=== PATIENT | male | born 1990 | race Two or more races ===

== ENCOUNTER 2022-08-30 12:16 | Emergency (ER) | payer OTHER, SELFPAY ==
--- NOTE | ~2022-08-30 | US_ITS ---
EXAMINATION: US SCROTUM CLINICAL INFORMATION: Left testicular pain. Rule out torsion.. COMPARISON: None available. TECHNIQUE: A sonogram of the scrotum was performed assessing crews-scale appearance and color Doppler flow. Spectral Doppler analysis of the arterial and venous flow were performed in the testes bilaterally. FINDINGS: RIGHT: Right testicle measures 5.0 x 2.4 x 3.1 cm, volume 19.1 mL. No focal testicular parenchymal lesions are visualized. Spectral Doppler analysis of the arterial and venous flow is normal in the right testis. Right epididymal head is normal in size. No right hydrocele or varicocele is seen. Right epididymal Doppler flow is normal. LEFT: Left testicle measures 4.8 x 2.5 x 2.9 cm, volume 17.7 mL. No focal testicular parenchymal lesions are visualized. Spectral Doppler analysis of the arterial and venous flow is normal in the left testis. Left epididymal head is normal in size. No left hydrocele or varicocele is seen. Left epididymal Doppler flow is normal. US/US scrotum IMPRESSION: Normal scrotal ultrasound.
--- NOTE | ~2022-08-30 | US_ITS ---
EXAMINATION: US SCROTUM CLINICAL INFORMATION: Left testicular pain. Rule out torsion.. COMPARISON: None available. TECHNIQUE: A sonogram of the scrotum was performed assessing crews-scale appearance and color Doppler flow. Spectral Doppler analysis of the arterial and venous flow were performed in the testes bilaterally. FINDINGS: RIGHT: Right testicle measures 5.0 x 2.4 x 3.1 cm, volume 19.1 mL. No focal testicular parenchymal lesions are visualized. Spectral Doppler analysis of the arterial and venous flow is normal in the right testis. Right epididymal head is normal in size. No right hydrocele or varicocele is seen. Right epididymal Doppler flow is normal. LEFT: Left testicle measures 4.8 x 2.5 x 2.9 cm, volume 17.7 mL. No focal testicular parenchymal lesions are visualized. Spectral Doppler analysis of the arterial and venous flow is normal in the left testis. Left epididymal head is normal in size. No left hydrocele or varicocele is seen. Left epididymal Doppler flow is normal. US/US scrotum doppler IMPRESSION: Normal scrotal ultrasound.
--- NOTE | 2022-08-30 12:21 | ED.MALEGU ---
HPI - Male Genitourinary General Chief complaint: Urogenital-Male Stated complaint: Testicluar Pain Time Seen by Provider: 08/30/22 16:28 Source: patient Mode of arrival: ambulatory Limitations: no limitations History of Present Illness HPI Narrative: Patient is a 32 year old assigned male at with no reported medical history presenting to the emergency department today with left sided testicular pain. Patient states that he has been having left sided testicular pain for months and felt a bump on it but now cannot find the bump. Patient denies any dizziness, lightheadedness, abdominal pain, nausea, vomiting, fever, chills, blurry vision, double vision, loss of vision, chest pain, difficulty breathing, shortness of breath, back pain, night sweats, pain with urination, increased urinary frequency, increased urinary urgency, blood in his urine or stool, syncope or a near syncopal episode, recent trauma or falls, bowel incontinence, bladder incontinence, bowel retention, bladder retention, or any other complaints at this time. MD Complaint: testicle pain Onset (ago): month(s) Duration: intermittent Location: left testicle Severity: mild Relieving factors: none Exacerbating factors: none Associated symptoms: Reports denies other symptoms Related Data Allergies Allergy/AdvReac Type Severity Reaction Status Date / Time No Known Allergies Allergy Verified 08/30/22 12:23 Review of Systems Constitutional: Constitutional: Reports no additional constitutional complaints, Denies chills, Denies fever(s) and Denies night sweats Eyes: Eyes: Reports no additional eye complaints, Denies blurry vision, Denies change in vision, Denies diplopia, Denies eye discharge, Denies loss of vision and Denies eye pain ENT: Denies dizziness Cardiovascular: Cardiovascular: Reports no additional cardiovascular complaints, Denies chest pain, Denies lightheadedness, Denies Loss of Consciousness and Denies dyspnea Respiratory: Respiratory: Reports no additional respiratory complaints and Denies dyspnea Gastrointestinal: Gastrointestinal: Reports no additional gastrointestinal complaints, Denies abdominal pain, Denies melena, Denies hematochezia, Denies change in bowel habits and Denies change in stool character Genitourinary: Genitourinary: Reports no additional male genitourinary complaints, Denies hematuria, Denies oliguria, Denies difficulty urinating, Denies dysuria, Reports testicular pain, Denies urinary frequency, Denies urinary hesitancy, Denies urinary incontinence and Denies urinary urgency Musculoskeletal: Musculoskeletal: Reports no additional musculoskeletal complaints, Denies numbness and Denies tingling Neurologic: Denies dizziness, Denies loss of vision, Denies numbness and Denies tingling Psychiatric: Psychiatric: Reports no additional psychiatric complaints Endocrine: Endocrine: Reports no additional endocrine complaints Hematologic/Lymphatic: Hematologic/Lymphatic: Reports no additional hematologic/lymphatic complaints Allergic/Immunologic: Allergic/Immunologic: Reports no additional allergic/immunologic complaints PMFSH Past Medical History Attestation statement: The following information was validated with the patient. Source: old records reviewed and nursing notes reviewed Social History Social History Advance Directives: No Advance Directives Information Provided: Yes Physical Exam Vital Signs: Vital Signs: Last Vital Signs Temp 98.1 F 08/30/22 12:22 Pulse 71 08/30/22 12:22 Resp 18 08/30/22 12:22 BP 141/88 H 08/30/22 12:22 Pulse Ox 98 08/30/22 12:22 O2 Del Method Room Air 08/30/22 12:22 BMI result Body Mass Index 26.5 Const: General: cooperative, no acute distress, alert and awake Nutritional Appearance: well nourished Orientation/consciousness: patient oriented x3 Limitations: no limitations HEENT: Head: Yes normal to inspection and Yes atraumatic Ears: hearing grossly normal bilaterally and external ears normal General nose exam: Normal external nose present, no nasal discharge noted and no epistaxis Face and sinus: Yes normal facial exam, No abrasion and No laceration Mouth: Normal oral and palatal mucosa present, no drooling and no muffled voice Eyes: General: appearance normal, both eyes and all related structures Periorbital: periorbital findings normal Eyelids: Yes eyelids normal Conjunctivae: conjunctivae normal Pupils: Equal, round and reactive pupils present EOM: EOMs intact bilaterally Neck: Neck: Yes normal visual inspection, Yes full ROM and Yes no lymphadenopathy Chest: Chest palpation & inspection: normal inspection of the chest Resp: Effort & Inspection: normal respiratory effort and able to speak in complete sentences GI: Inspection: Yes normal to inspection : Male General Exam: Yes normal external exam Penis: normal penis Meatus: meatus normal Scrotum: scrotum normal Neuro: General: patient oriented x3 and moves all extremities Cranial nerves: Yes Equal, round and reactive pupils present Cognition (Neuro): normal cognition Motor exam (neuro): 5/5 motor strength present throughout Sensory Exam: Normal double simultaneous stimulation for sensation Coordination: [id number] test normal Extrem: General: Yes normal to inspection, Yes full ROM and Yes capillary refill normal Psych: Appearance: grossly normal Mental Status: mental status grossly normal Affect: normal affect Attitude: cooperative Thought process: Normal thought process present Thought content: Normal thought content present Insight: Good insight present (Psych) Course Course Course Narrative: This is a rapid medical exam. Deferred additional HPI, ROS, PE to primary provider. 32yo male with no known medical problems here with left testicular pain intermittent for months worsened over last 3 days with no other associated symptoms. Sent from for US. Will obtain UA, CT NG, testicular US. VSS Medical Decision Making Medical Decision Making [facility] Narrative: Patient is a 32 year old assigned male at with no reported medical history presenting to the emergency department today with left testicular pain. Patient's physical exam was unremarkable. Patient's urine showed no acute process. Patient's scrotal US showed no acute process. I explained my physical exam findings as well as all test results to the patient. I answered all questions asked by the patient. I stressed the importance of the patient taking his medication as prescribed. I stressed the importance of the patient following up with his primary care provider and a urologist. I stressed the importance of the patient returning to the emergency department immediately if his symptoms were to worsen or if he were to develop any dizziness, shortness of breath, difficulty breathing, chest pain, blurry vision, loss of vision, nausea, vomiting, abdominal pain, fever, chills, back pain, or any other complaints. Patient verbalized agreement and understanding with this treatment plan and discharge. Differential Diagnosis Differential Diagnoses: The differential diagnosis associated with the presentation includes scrotal pain Lab Data [facility] Lab Attestation statement: I reviewed the patient's lab results. Labs: Lab Results 08/30/22 08/30/22 Range/Units 13:13 13:13 Urine Color Yellow Urine Appearance Clear Urine pH 7.0 (5.0-9.0) Ur Specific [place] 1.020 (1.005-1.025) Urine Protein Negative (Neg-Trace) mg/dL Urine Glucose (UA) Negative (Negative) mg/dL Urine Ketones Negative (Negative) mg/dL Urine Blood Negative (Negative) Urine Nitrite Negative (Negative) Ur Leukocyte Esterase Negative (Negative) Chlam trachomat DNA PCR NOT DETECTED (Not Detect.) N.gonorrhoeae DNA (PCR) NOT DETECTED (Not Detect.) Independent Interpretation I performed an independent interpretation of an: Ultrasound Interpretation: My interpretation is in agreement with the radiologist's impression of this imaging study. EXAMINATION: US SCROTUM CLINICAL INFORMATION: Left testicular pain. Rule out torsion.. COMPARISON: None available. TECHNIQUE: A sonogram of the scrotum was performed assessing crews-scale appearance and color Doppler flow. Spectral Doppler analysis of the arterial and venous flow were performed in the testes bilaterally. FINDINGS: RIGHT: Right testicle measures 5.0 x 2.4 x 3.1 cm, volume 19.1 mL. No focal testicular parenchymal lesions are visualized. Spectral Doppler analysis of the arterial and venous flow is normal in the right testis. Right epididymal head is normal in size. No right hydrocele or varicocele is seen. Right epididymal Doppler flow is normal. LEFT: Left testicle measures 4.8 x 2.5 x 2.9 cm, volume 17.7 mL. No focal testicular parenchymal lesions are visualized. Spectral Doppler analysis of the arterial and venous flow is normal in the left testis. Left epididymal head is normal in size. No left hydrocele or varicocele is seen. Left epididymal Doppler flow is normal. US/US scrotum IMPRESSION: Normal scrotal ultrasound. Dictated By: Tera Burnham MD Signed By: Electronically signed by Tera Burnham MD 08/30/22 5473 Discharge Plan Discharge Clinical Impression: Pain in scrotum Patient Disposition: Home, Self-Care Instructions: Scrotal Pain (ED) Additional Instructions: Follow up with your primary care provider and a urologist. Return to the emergency department immediately if your symptoms worsen or if you develop any dizziness, shortness of breath, difficulty breathing, chest pain, blurry vision, loss of vision, nausea, vomiting, abdominal pain, fever, chills, back pain, or any other complaints. Referrals: [facility] [place] [facility] [Provider Group] (Call to establish and follow up with a primary care provider. If you already have a primary care provider, please follow up with them.) [facility] Primary Care, April [Provider Group] (Call to establish and follow up with a primary care provider. If you already have a primary care provider, please follow up with them.) [facility] [place] (Call to establish and follow up with a primary care provider. If you already have a primary care provider, please follow up with them.) [facility] [Provider Group] (Call to establish and follow up with a urologist.) [facility] [Physician] - Stand Alone Forms: Work/School Release Interventions: ED Discharge Assessment Last Done: 08/30/22 16:38 Discharge Date/Time: 08/30/22 16:38 Print Language: Telugu
[2022-08-30 12:22] VITALS: BP 141/88; PULSE 71; RESP 18; TEMP 36.7; O2SAT 98; BMI 26.5
[2022-08-30 13:28] LABS: Appearance Urine Clear; Color Urine Yellow; Glucose Urine UA Negative (Negative); Leukocyte Esterase Urine Negative (Negative); Nitrite Urine Negative (Negative); Urine Blood Negative (Negative); Urine Ketones Negative (Negative); Urine Protein Negative (Neg-Trace)
[2022-08-30 15:08] LABS: CT PCR NOT DETECTED (Not Detect.); NG PCR NOT DETECTED (Not Detect.)
== END 2022-08-30 16:38 | disposition home or self-care (01) ==
PROVIDERS: Nurse Practitioner Family; Emergency Provider Student in an Organized Health Care Education/Training Program
DX: N50.82 Scrotal pain (principal)
CPT/HCPCS: 0353U; 76870; 81003; 93975; 99282; 99284

== ENCOUNTER 2022-10-04 11:10 | Outpatient (AMB) | payer OTHER, SELFPAY ==
--- NOTE | 2022-10-04 11:13 | MHC.OFFVIS ---
Intake Intake Visit Reasons: [facility] [place] Up-scrotal pain Intake Note: NEW Patient presents today to [facility] treatment for Scrotal Pain, referred by [facility]. Meds- None Allergies to Antibiotic- None Blood Thinner- None Roll Sheeting Cutter Required: No Accompanied by: Self / Same As Patient Allergies No Known Allergies Allergy (Verified 10/04/22 11:25) HPI HPI Comments History of Present Illness Details Darwin is a 32-year-old male who presents to the office as a new patient ER follow-up for scrotal pain. 10/04/22-- The patient visited the ER on 08/30/22 for left sided testicular pain. Review of US results: Both testicles are normal, negative for testicular mass. Good flow to both testicles. No signs of infection. Urinalysis?08/30/22-- Blood: negative, leukocytes: negative. The patient complains left testicular pain on and off. 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 He was in the ER because he states the pain was more intense on that particular day. He was told in the ER to put a heating pad. I have reviewed the US with the patient. I have discussed with him the importance of emptying bladder in a timely fashion during the day, especially before lifting. I have discussed that he has symptoms suggestive of a chemical epididymitis which could be related to straining while lifting with a full bladder and urine may be going to the ejaculatory duct and causing inflammatory response. Evaluation today: UA-- Blood: negative, leukocytes: negative. Plan: Testicular pain. US WNL Tylenol PRN and heating pad during the episode of pain. Discussed to consume adequate water and empty bladder in timely manner. Review of Systems Const All systems reviewed & are unremarkable except as noted in HPI and below Reports no additional complaints Eyes Reports no additional complaints ENT Denies neck pain Card Denies leg edema Resp Denies cough GI Denies constipation Musc Reports no additional complaints and Denies neck pain Skin/Breast Denies rash and Denies unusual bruising Neuro Reports no additional complaints Psych Reports no additional complaints Endo Reports no additional complaints Fabiano/Lymph Reports no additional complaints Aller/Immun Reports no additional complaints Physical Exam Const General: healthy appearing, no acute distress and well developed Orientation/consciousness: patient oriented x3 HEENT Head: Yes normocephalic and Yes atraumatic Eyes Conjunctivae: conjunctivae normal Neck Neck: Yes normal visual inspection Chest Chest palpation & inspection: normal inspection of the chest Resp Effort & Inspection: normal respiratory effort Cardio Rate: regular rate GI Inspection: Yes normal to inspection Skin General skin exam: no rashes or lesions noted Neuro General: patient oriented x3 Extrem General: No pedal edema Psych Appearance: grossly normal Affect: normal affect Results AMB Urinalysis, Automated UA Leukoctes 0 Little/uL Last Edit by JUDSON Pandya on 10/04/22 11:27 UA Nitrite Negative Last Edit by Gabbi Altman Lidia on 10/04/22 11:27 UA Urobilinogen 0.2 mg/dL Last Edit by Gabbi Altman Lidia on 10/04/22 11:27 UA Protein 15 mg/dL Last Edit by Gabbi Altman Lidia on 10/04/22 11:27 UA pH 6.0 Last Edit by Gabbi Altman Lidia on 10/04/22 11:27 UA Blood 0 Jesus/uL Last Edit by Gabbi Altman Lidia on 10/04/22 11:27 UA Specific [place] 1.025 Last Edit by Gabbi Altman [facility] on 10/04/22 11:27 UA Ketone Negative Last Edit by JUDSON Pandya on 10/04/22 11:27 UA Bilirubin 0 mg/dL Last Edit by Gabbi Altman Lidia on 10/04/22 11:27 UA Glucose 0 mg/dL Last Edit by Gabbi Altman [facility] on 10/04/22 11:27 Results Reviewed Results Reviewed: Laboratory Last Values Urine pH (Auto) 6.0 10/04/22 11: Specific [place] (Auto) 1.025 10/04/22 11:26 Urine Protein (Auto) 15 mg/dL 10/04/22 11:26 Glucose (UA)(Auto) 0 mg/dL 10/04/22 11:26 Urine Ketones (Auto) Negative 10/04/22 11: Urine Blood (Auto) 0 Jesus/uL 10/04/22 11:26 Urine Nitrite (Auto) Negative 10/04/22 11:26 Urine Bilirubin (Auto) 0 mg/dL 10/04/22 11:26 Urine Urobilinogen (Auto) 0.2 mg/dL 10/04/22 11:26 Leukocyte Esterase (Auto) 0 Little/uL 10/04/22 11:26 Date of Service: 08/30/22 EXAMINATION: US SCROTUM CLINICAL INFORMATION: Left testicular pain. Rule out torsion.. COMPARISON: None available. TECHNIQUE: A sonogram of the scrotum was performed assessing crews-scale appearance and color Doppler flow. Spectral Doppler analysis of the arterial and venous flow were performed in the testes bilaterally. FINDINGS: RIGHT: Right testicle measures 5.0 x 2.4 x 3.1 cm, volume 19.1 mL. No focal testicular parenchymal lesions are visualized. Spectral Doppler analysis of the arterial and venous flow is normal in the right testis. Right epididymal head is normal in size. No right hydrocele or varicocele is seen. Right epididymal Doppler flow is normal. LEFT: Left testicle measures 4.8 x 2.5 x 2.9 cm, volume 17.7 mL. No focal testicular parenchymal lesions are visualized. Spectral Doppler analysis of the arterial and venous flow is normal in the left testis. Left epididymal head is normal in size. No left hydrocele or varicocele is seen. Left epididymal Doppler flow is normal. IMPRESSION: Normal scrotal ultrasound. Assessment & Plan Assessment & Plan (1) Testicular pain: Code(s): N50.819 - Testicular pain, unspecified Plan Testicular pain. US WNL Tylenol PRN and heating pad during the episode of pain. Discussed to consume adequate water and empty bladder in timely manner. Orders: Orders AMB Urinalysis Automated 10/04/22 Z13.9 - Encounter for screening, unspecified Patient Instructions: The patient had an opportunity to ask questions regarding treatment plan. All questions were answered. Imaging, Laboratory studies and physical exam results were discussed and reviewed in detail. No major barriers to understanding were identified. The patient expressed understanding and agreement with the above treatment plan. The patient is aware they should contact our office by phone for worsening of their current condition or the appearance of new symptoms. Compliance is encouraged with any medications and followup testing that is ordered. It is a privilege to be allowed the opportunity to participate in the urologic care of your patient. If you have any questions or concerns regarding treatment for the above conditions please do not hesitate to contact me. The office telephone contact is [phone]. This note is constructed in part using voice recognition software. While every effort has been made to ensure accuracy microstrategy bi developer errors may have been included. Yours sincerely, Dionisio Randolph MD Coding Level of Care Code New Pt Level 3 (32265) Diagnoses Testicular pain N50.819
== END 2022-10-04 12:12 | disposition home or self-care (01) ==
PROVIDERS: Visit Provider Urology
DX: N50.819 Testicular pain, unspecified (principal)
CPT/HCPCS: 99203

== ENCOUNTER → 2022-10-04 11:10 | Outpatient (BNVA) | payer OTHER, SELFPAY | PROVIDERS: Visit Provider Urology | DX: N50.819 Testicular pain, unspecified (principal) | CPT/HCPCS: 99202 ==